=== PATIENT | female | born 1955 | race American Indian/Alaskan Native ===

== ENCOUNTER 2016-12-08 17:00 | Emergency (ER) | payer MEDICAID ==
[2016-12-08] MEDS ORDERED: Sodium Chloride 0.9% 10 ML Syringe FLUSH PRN ×2 (17:01→17:19)
[2016-12-08] MEDS ORDERED: 50% Dextrose in Water 50 ML Syringe IVPUSH ONE (17:16)
[2016-12-08 17:20] VITALS: BP 82/61
[2016-12-08] MEDS ORDERED: Dextrose 5%-0.45% NaCl 1,000 ML IV SCH (17:30)
[2016-12-08] MEDS ORDERED: Sodium Chloride 0.9% 1,000 ML IV ONE (17:39)
[2016-12-08 18:09] LABS: CHLORIDE,CL 94 mmol/L (101-111); SODIUM,NA 138 mmol/L (135-145)
[2016-12-08] MEDS ORDERED: Piperacillin/Tazobactam 3.375 GM in Sodium Chloride 0.9% 100 ML IV ONE (18:13)
[2016-12-08 19:07] LABS: BASE EXCESS ARTERIAL -16 mmol/L ((-2)-(+3)); O2 DELIVERY DEVICE ROOM AIR; O2 SATURATION ARTERIAL 60 % (95-100); PCO2 ARTERIAL 26 mmHg (35-45)
[2016-12-08 19:09] LABS: PO2 ARTERIAL 44 mmHg (70-100)
--- NOTE | 2016-12-08 19:18 | EDM.PDOC ---
Scribed by Yuli Trivedi 12/08/16 0340 for Sanjeev Cooper MD ED HPI GENERAL MEDICAL PROBLEM - General Chief Complaint: Diabetic Complaint Stated Complaint: AMBULANCE Time Seen by Provider: 12/08/16 17:00 Source of Information: Reports: Patient, EMS, RN, RN Notes Reviewed History Limitations: Reports: Other (confusion) - History of Present Illness INITIAL COMMENTS - FREE TEXT/NARRATIVE: Arrives from home by ambulance with report that a family member called 911 stating patient was unresponsive but breathing. EMS found patient to have a blood sugar of 22 and gave oral glucose. Patient reports feeling weak x1 or 2 days but denies any other complaints and can give no further history. Severity: Severe Improves with: Reports: None Worsens with: Reports: None Associated Symptoms: Reports: No Other Symptoms - Related Data Allergies Allergy/AdvReac Type Severity Reaction Status Date / Time No Known Allergies Allergy Verified 12/08/16 17:13 Home Meds: Home Meds Lisinopril 10 mg PO DAILY 08/05/13 [History] metFORMIN [metFORMIN XR] 250 mg PO BID 08/05/13 [History] Multivitamin [Daily Multiple Vitamin] 1 tab PO DAILY 12/08/16 [History] Naproxen 250 mg PO BID 12/08/16 [History] Past Medical History HEENT History: Reports: Impaired Vision Cardiovascular History: Reports: Hypertension Respiratory History: Reports: COPD Psychiatric History: Reports: Addiction (alcohol) Endocrine/Metabolic History: Reports: Diabetes, Type II - History Comment History Comment: alcohol abuse Social & Family History - Family History Family Medical History: Noncontributory - Tobacco Use Smoking Status *Q: Current Every Day Smoker Years of Tobacco use: 20 Packs/Tins Daily: 1 Used Tobacco, but Quit: No Second Hand Smoke Exposure: Yes - Alcohol Use Days Per Week of Alcohol Use: 2 Number of Drinks Per Day: 5 Total Drinks Per Week: 10 - Recreational Drug Use Recreational Drug Use: No - Living Situation & Occupation Living situation: Reports: with Family Occupation: Unemployed ED ROS GENERAL - Review of Systems Review Of Systems: Unable To Obtain (patient confused) ED EXAM GENERAL NO PERIP PULSE - Physical Exam Exam: See Below Exam Limited By: No Limitations General Appearance: Lethargic, Other (frail, thin, chronically ill appearing.) Eye Exam: Bilateral Eye: Normal Inspection Ears: Normal External Exam, Normal Canal, Hearing Grossly Normal, Normal TMs Nose: Normal Inspection, Normal Mucosa, No Blood Throat/Mouth: Other (missing teeth. Dry oral membranes.) Head: Atraumatic, Normocephalic Neck: Normal Inspection, Supple, Non-Tender, Full Range of Motion Respiratory/Chest: Decreased Breath Sounds (in bilateral lower lung [place]. ) Cardiovascular: Normal Peripheral Pulses, Regular Rate, Rhythm, No Edema, No Gallop, No JVD, No Murmur, No Rub GI/Abdominal: Normal Bowel Sounds, Soft, Non-Tender, No Organomegaly, No Distention, No Abnormal Bruit, No Mass (Female) Exam: Deferred Rectal (Female) Exam: Deferred Back Exam: Normal Inspection, Full Range of Motion, NT Extremities: Normal Inspection, Normal Range of Motion, Non-Tender, Normal Capillary Refill, No Pedal Edema Neurological: Alert, Oriented (to person and place. Generalized weakness.), No Motor/Sensory Deficits Psychiatric: Flat Affect Skin Exam: Other (cool to touch, otherwise normal. ) EKG INTERPRETATION EKG Date: 12/08/16 Time: 17:28 Rhythm: Other (sinus rhythm) Rate (Beats/Min): 88 [place]: Normal P-Wave: Present QRS: Normal ST-T: Normal QT: Prolonged Comparison: NA - No Prior EKG Course - Vital Signs Last Recorded V/S: Last Vital Signs Temp 29.8 C L 12/08/16 17:19 Pulse 90 12/08/16 17:19 Resp 14 12/08/16 17:19 BP 82/61 L 12/08/16 17:19 Pulse Ox 100 12/08/16 17:19 - Orders/Labs/Meds Orders: Active Orders 24 hr Category Date Time Status Blood Glucose Check, Bedside [RC] ONETIME Care 12/08/16 17:00 Active Blood Glucose Check, Bedside [RC] ONETIME Care 12/08/16 17:56 Active Blood Glucose Check, Bedside [RC] ONETIME Care 12/08/16 18:42 Active Cardiac Monitoring [RC] . DIRECTED Care 12/08/16 17:01 Active EKG 12 Lead [EKG Documentation Completion] [RC] STAT Care 12/08/16 17:19 Active Peripheral IV Care [RC] . DIRECTED Care 12/08/16 17:01 Active Peripheral IV Care [RC] . DIRECTED Care 12/08/16 17:19 Active Chest 1V Frontal [CR] Stat Exams 12/08/16 18:46 Ordered AMMONIA VENOUS [CHEM] Stat Lab 12/08/16 18:55 Received AMYLASE [CHEM] Stat Lab 12/08/16 17:10 Results COMPREHENSIVE METABOLIC PN,CMP [CHEM] Stat Lab 12/08/16 17:10 Results CREATINE KINASE,CK [CHEM] Stat Lab 12/08/16 17:10 Results CULTURE BLOOD [BC] Stat Lab 12/08/16 17:57 Results CULTURE BLOOD [BC] Stat Lab 12/08/16 18:10 Results DRUG SCREEN URINE BIORAD [URCHEM] Stat Lab 12/08/16 17:01 Uncollected ETHANOL BLOOD MEDICAL [CHEM] Stat Lab 12/08/16 17:10 Results LIPASE [CHEM] Stat Lab 12/08/16 17:10 Results UA W/MICROSCOPIC [URIN] Stat Lab 12/08/16 17:00 Uncollected Dextrose 5%-0.45% NaCl [Dextrose 5%-1/2 NS] 1,000 ml Med 12/08/16 17:30 Active IV ASDIRECTED Sodium Chloride 0.9% [Saline Flush] Med 12/08/16 17:01 Active 10 ml FLUSH ASDIRECTED PRN Sodium Chloride 0.9% [Saline Flush] Med 12/08/16 17:19 Active 10 ml FLUSH ASDIRECTED PRN Blood Culture x2 Reflex Set [OM.PC] Stat Oth 12/08/16 17:20 Ordered Peripheral IV Insertion Adult [OM.PC] Stat Oth 12/08/16 17:00 Ordered Peripheral IV Insertion Adult [OM.PC] Stat Oth 12/08/16 17:19 Ordered Medication Orders Dextrose/Sodium Chloride (Dextrose 5%-1/2 Ns) 1,000 mls @ 150 mls/hr IV ASDIRECTED RAVIN Last Admin: 12/08/16 17:29 Dose: 150 mls/hr Sodium Chloride (Saline Flush) 10 ml FLUSH ASDIRECTED PRN PRN Reason: Keep Vein Open Last Admin: 12/08/16 17:17 Dose: 10 ml Sodium Chloride (Saline Flush) 10 ml FLUSH ASDIRECTED PRN PRN Reason: Keep Vein Open Last Admin: 12/08/16 17:55 Dose: 10 ml Labs: Laboratory Tests 12/08/16 12/08/16 12/08/16 Range/Units 17:07 17:10 17:10 WBC 40.0 H* (5.0-10.0) 10^3/uL RBC 3.64 L (4.2-5.4) 10^6/uL Hgb 9.9 L (12.0-16.0) g/dL Hct 31.9 L (37.0-47.0) % MCV 87.6 (80-100) fL MCH 27.2 (27.0-34.0) pg MCHC 31.0 L (33.0-35.0) g/dL Plt Count 281 (150-450) 10^3/uL Neut % (Auto) 95.5 H (42.2-75.2) % Lymph % (Auto) 1.6 L (20.5-50.1) % [place] % (Auto) 2.8 (2-8) % Eos % (Auto) 0.0 L (1.0-3.0) % Baso % (Auto) 0.1 (0.0-1.0) % Add Manual Diff Yes Neutrophils % (Manual) 89 % Band Neutrophils % 6 % Lymphocytes % (Manual) 4 % Monocytes % (Manual) 1 % Teagan Cells 2+ moderate ABG pH (7.35-7.45) ABG pCO2 (35-45) mmHg ABG pO2 (70-100) mmHg ABG HCO3 (22-26) mmol/L ABG O2 Saturation (95-100) % ABG Base Excess ((-2)-(+3)) mmol/L O2 Delivery Device Sodium 138 (135-145) mmol/L Potassium 4.4 (3.6-5.0) mmol/L Chloride 94 L (101-111) mmol/L Carbon Dioxide 9.0 L (21.0-31.0) mmol/L Anion Gap 39.4 BUN 28 H (7-18) mg/dL Creatinine 2.4 H (0.6-1.3) mg/dL Est Cr Clr Drug Dosing TNP Estimated GFR (MDRD) 21 BUN/Creatinine Ratio 11.66 Glucose 48 L* (74-105) mg/dL POC Glucose 58 L (70-105) mg/dl Lactic Acid (0.5-2.2) mmol/L Calcium 8.2 L (8.4-10.2) mg/dl Phosphorus (2.5-4.6) mg/dL Magnesium (1.8-2.5) mg/dL Total Bilirubin 4.4 H (0.2-1.0) mg/dL Alkaline Phosphatase 251 H (42-121) IU/L Creatine Kinase 348 H (26-174) IU/L Troponin I (0.00-0.02) ng/ml B-Natriuretic Peptide (0-100) pg/ml Total Protein 6.9 (6.7-8.2) g/dl Albumin 2.1 L (3.2-5.5) g/dl Globulin 4.8 Albumin/Globulin Ratio 0.44 Amylase 48 (28-100) U/L Lipase 26 (22-51) U/L Ethyl Alcohol 62 mg/dL 12/08/16 12/08/16 12/08/16 Range/Units 17:10 17:10 17:10 WBC (5.0-10.0) 10^3/uL RBC (4.2-5.4) 10^6/uL Hgb (12.0-16.0) g/dL Hct (37.0-47.0) % MCV (80-100) fL MCH (27.0-34.0) pg MCHC (33.0-35.0) g/dL Plt Count (150-450) 10^3/uL Neut % (Auto) (42.2-75.2) % Lymph % (Auto) (20.5-50.1) % [place] % (Auto) (2-8) % Eos % (Auto) (1.0-3.0) % Baso % (Auto) (0.0-1.0) % Add Manual Diff Neutrophils % (Manual) % Band Neutrophils % % Lymphocytes % (Manual) % Monocytes % (Manual) % [place] Cells ABG pH (7.35-7.45) ABG pCO2 (35-45) mmHg ABG pO2 (70-100) mmHg ABG HCO3 (22-26) mmol/L ABG O2 Saturation (95-100) % ABG Base Excess ((-2)-(+3)) mmol/L O2 Delivery Device Sodium (135-145) mmol/L Potassium (3.6-5.0) mmol/L Chloride (101-111) mmol/L Carbon Dioxide (21.0-31.0) mmol/L Anion Gap BUN (7-18) mg/dL Creatinine (0.6-1.3) mg/dL Est Cr Clr Drug Dosing Estimated GFR (MDRD) BUN/Creatinine Ratio Glucose (74-105) mg/dL POC Glucose (70-105) mg/dl Lactic Acid 16.9 H (0.5-2.2) mmol/L Calcium (8.4-10.2) mg/dl Phosphorus 10.7 H* (2.5-4.6) mg/dL Magnesium 1.7 L (1.8-2.5) mg/dL Total Bilirubin (0.2-1.0) mg/dL Alkaline Phosphatase (42-121) IU/L Creatine Kinase (26-174) IU/L Troponin I < 0.02 (0.00-0.02) ng/ml B-Natriuretic Peptide 448 H (0-100) pg/ml Total Protein (6.7-8.2) g/dl Albumin (3.2-5.5) g/dl Globulin Albumin/Globulin Ratio Amylase (28-100) U/L Lipase (22-51) U/L Ethyl Alcohol mg/dL 12/08/16 12/08/16 12/08/16 Range/Units 17:59 18:30 18:34 WBC (5.0-10.0) 10^3/uL RBC (4.2-5.4) 10^6/uL Hgb (12.0-16.0) g/dL Hct (37.0-47.0) % MCV (80-100) fL MCH (27.0-34.0) pg MCHC (33.0-35.0) g/dL Plt Count (150-450) 10^3/uL Neut % (Auto) (42.2-75.2) % Lymph % (Auto) (20.5-50.1) % [place] % (Auto) (2-8) % Eos % (Auto) (1.0-3.0) % Baso % (Auto) (0.0-1.0) % Add Manual Diff Neutrophils % (Manual) % Band Neutrophils % % Lymphocytes % (Manual) % Monocytes % (Manual) % Teagan Cells ABG pH 7.22 L (7.35-7.45) ABG pCO2 26 L (35-45) mmHg ABG pO2 44 L* (70-100) mmHg ABG HCO3 10.0 L (22-26) mmol/L ABG O2 Saturation 60 L (95-100) % ABG Base Excess -16 L ((-2)-(+3)) mmol/L O2 Delivery Device Room air Sodium (135-145) mmol/L Potassium (3.6-5.0) mmol/L Chloride (101-111) mmol/L Carbon Dioxide (21.0-31.0) mmol/L Anion Gap BUN (7-18) mg/dL Creatinine (0.6-1.3) mg/dL Est Cr Clr Drug Dosing Estimated GFR (MDRD) BUN/Creatinine Ratio Glucose (74-105) mg/dL POC Glucose 230 H 235 H (70-105) mg/dl Lactic Acid (0.5-2.2) mmol/L Calcium (8.4-10.2) mg/dl Phosphorus (2.5-4.6) mg/dL Magnesium (1.8-2.5) mg/dL Total Bilirubin (0.2-1.0) mg/dL Alkaline Phosphatase (42-121) IU/L Creatine Kinase (26-174) IU/L Troponin I (0.00-0.02) ng/ml B-Natriuretic Peptide (0-100) pg/ml Total Protein (6.7-8.2) g/dl Albumin (3.2-5.5) g/dl Globulin Albumin/Globulin Ratio Amylase (28-100) U/L Lipase (22-51) U/L Ethyl Alcohol mg/dL 12/08/16 Range/Units 18:48 WBC (5.0-10.0) 10^3/uL RBC (4.2-5.4) 10^6/uL Hgb (12.0-16.0) g/dL Hct (37.0-47.0) % MCV (80-100) fL MCH (27.0-34.0) pg MCHC (33.0-35.0) g/dL Plt Count (150-450) 10^3/uL Neut % (Auto) (42.2-75.2) % Lymph % (Auto) (20.5-50.1) % [place] % (Auto) (2-8) % Eos % (Auto) (1.0-3.0) % Baso % (Auto) (0.0-1.0) % Add Manual Diff Neutrophils % (Manual) % Band Neutrophils % % Lymphocytes % (Manual) % Monocytes % (Manual) % [place] Cells ABG pH (7.35-7.45) ABG pCO2 (35-45) mmHg ABG pO2 (70-100) mmHg ABG HCO3 (22-26) mmol/L ABG O2 Saturation (95-100) % ABG Base Excess ((-2)-(+3)) mmol/L O2 Delivery Device Sodium (135-145) mmol/L Potassium (3.6-5.0) mmol/L Chloride (101-111) mmol/L Carbon Dioxide (21.0-31.0) mmol/L Anion Gap BUN (7-18) mg/dL Creatinine (0.6-1.3) mg/dL Est Cr Clr Drug Dosing Estimated GFR (MDRD) BUN/Creatinine Ratio Glucose (74-105) mg/dL POC Glucose 265 H (70-105) mg/dl Lactic Acid (0.5-2.2) mmol/L Calcium (8.4-10.2) mg/dl Phosphorus (2.5-4.6) mg/dL Magnesium (1.8-2.5) mg/dL Total Bilirubin (0.2-1.0) mg/dL Alkaline Phosphatase (42-121) IU/L Creatine Kinase (26-174) IU/L Troponin I (0.00-0.02) ng/ml B-Natriuretic Peptide (0-100) pg/ml Total Protein (6.7-8.2) g/dl Albumin (3.2-5.5) g/dl Globulin Albumin/Globulin Ratio Amylase (28-100) U/L Lipase (22-51) U/L Ethyl Alcohol mg/dL Meds: Medications Generic Name Dose Route Start Last Admin Trade Name Freq PRN Reason Stop Dose Admin Dextrose/Sodium Chloride 1,000 mls @ 150 mls/hr 12/08/16 17:30 12/08/16 17:29 Dextrose 5%-1/2 Ns IV 150 mls/hr ASDIRECTED RAVIN Administration Sodium Chloride 10 ml 12/08/16 17:01 12/08/16 17:17 Saline Flush FLUSH 10 ml ASDIRECTED PRN Administration Keep Vein Open Sodium Chloride 10 ml 12/08/16 17:19 12/08/16 17:55 Saline Flush FLUSH 10 ml ASDIRECTED PRN Administration Keep Vein Open Discontinued Medications Generic Name Dose Route Start Last Admin Trade Name Freq PRN Reason Stop Dose Admin Dextrose/Water 50 ml 12/08/16 17:16 12/08/16 17:19 Dextrose 50% In Water IVPUSH 12/08/16 17:17 50 ml ONETIME ONE Administration Sodium Chloride 1,000 mls @ 999 mls/hr 12/08/16 17:39 12/08/16 17:49 Normal Saline IV 12/08/16 18:39 999 mls/hr .BOLUS ONE Administration Piperacillin Sod/Tazobactam 100 mls @ 200 mls/hr 12/08/16 18:13 12/08/16 18: 22 Sod 3.375 gm/ Sodium Chloride IV 12/08/16 18:42 200 mls/hr ONETIME ONE Administration - Radiology Interpretation Free Text/Narrative:: CXR: see Rad. report. Departure - Departure Time of Disposition: 19:01 Disposition: DC/Tfer to Acute Hospital 02 Condition: Critical Clinical Impression: Hypoglycemia, Septic shock, Chronic alcohol abuse Hypothermia Qualifiers: Encounter type: initial encounter Qualified Code(s): T68.XXXA - Hypothermia, initial encounter Sepsis Qualifiers: Sepsis type: sepsis due to unspecified organism Qualified Code(s): A41.9 - Sepsis, unspecified organism - Discharge Information Forms: ED Department Discharge, Interfacility Transfer EMTALA - My Orders Last 24 Hours: My Active Orders 12/08/16 17:00 Blood Glucose Check, Bedside [RC] ONETIME UA W/MICROSCOPIC [URIN] Stat Peripheral IV Insertion Adult [OM.PC] Stat 12/08/16 17:01 Cardiac Monitoring [RC] . DIRECTED Peripheral IV Care [RC] . DIRECTED DRUG SCREEN URINE BIORAD [URCHEM] Stat Sodium Chloride 0.9% [Saline Flush] 10 ml FLUSH ASDIRECTED PRN 12/08/16 17:10 AMYLASE [CHEM] Stat COMPREHENSIVE METABOLIC PN,CMP [CHEM] Stat CREATINE KINASE,CK [CHEM] Stat ETHANOL BLOOD MEDICAL [CHEM] Stat LIPASE [CHEM] Stat 12/08/16 17:19 EKG 12 Lead [EKG Documentation Completion] [RC] STAT Peripheral IV Care [RC] . DIRECTED Sodium Chloride 0.9% [Saline Flush] 10 ml FLUSH ASDIRECTED PRN Peripheral IV Insertion Adult [OM.PC] Stat 12/08/16 17:20 Blood Culture x2 Reflex Set [OM.PC] Stat 12/08/16 17:30 Dextrose 5%-0.45% NaCl [Dextrose 5%-1/2 NS] 1,000 ml IV ASDIRECTED 12/08/16 17:56 Blood Glucose Check, Bedside [RC] ONETIME 12/08/16 17:57 CULTURE BLOOD [BC] Stat 12/08/16 18:10 CULTURE BLOOD [BC] Stat 12/08/16 18:42 Blood Glucose Check, Bedside [RC] ONETIME 12/08/16 18:46 Chest 1V Frontal [CR] Stat 12/08/16 18:55 AMMONIA VENOUS [CHEM] Stat - Assessment/Plan Last 24 Hours: My Active Orders 12/08/16 17:00 Blood Glucose Check, Bedside [RC] ONETIME UA W/MICROSCOPIC [URIN] Stat Peripheral IV Insertion Adult [OM.PC] Stat 12/08/16 17:01 Cardiac Monitoring [RC] . DIRECTED Peripheral IV Care [RC] . DIRECTED DRUG SCREEN URINE BIORAD [URCHEM] Stat Sodium Chloride 0.9% [Saline Flush] 10 ml FLUSH ASDIRECTED PRN 12/08/16 17:10 AMYLASE [CHEM] Stat COMPREHENSIVE METABOLIC PN,CMP [CHEM] Stat CREATINE KINASE,CK [CHEM] Stat ETHANOL BLOOD MEDICAL [CHEM] Stat LIPASE [CHEM] Stat 12/08/16 17:19 EKG 12 Lead [EKG Documentation Completion] [RC] STAT Peripheral IV Care [RC] . DIRECTED Sodium Chloride 0.9% [Saline Flush] 10 ml FLUSH ASDIRECTED PRN Peripheral IV Insertion Adult [OM.PC] Stat 12/08/16 17:20 Blood Culture x2 Reflex Set [OM.PC] Stat 12/08/16 17:30 Dextrose 5%-0.45% NaCl [Dextrose 5%-1/2 NS] 1,000 ml IV ASDIRECTED 12/08/16 17:56 Blood Glucose Check, Bedside [RC] ONETIME 12/08/16 17:57 CULTURE BLOOD [BC] Stat 12/08/16 18:10 CULTURE BLOOD [BC] Stat 12/08/16 18:42 Blood Glucose Check, Bedside [RC] ONETIME 12/08/16 18:46 Chest 1V Frontal [CR] Stat 12/08/16 18:55 AMMONIA VENOUS [CHEM] Stat I have read and agree with the documentation that has been completed regarding this visit. By signing this record, I attest that the documentation was completed in my physical presence and is an accurate record of the encounter.
--- NOTE | 2016-12-09 20:26 | EKG ---
12/08/2016 - VIJAY JOY - This 12-lead EKG shows a normal sinus rhythm with a ventricular rate of 88. Normal axis. Prolonged QT interval. No acute ST-segment or T-wave changes. [facility] /[id number]
[2017-01-06 11:24] LABS: ALLEN TEST POSITIVE
== END 2016-12-08 19:31 ==
LOC: DL.ED 17:00
DX: A41.9 Sepsis, unspecified organism (principal); R65.21 Severe sepsis with septic shock; T68.XXXA Hypothermia, initial encounter; E11.649 Type 2 diabetes mellitus with hypoglycemia without coma; F10.10 Alcohol abuse, uncomplicated; I10 Essential (primary) hypertension; J44.9 Chronic obstructive pulmonary disease, unspecified; F17.210 Nicotine dependence, cigarettes, uncomplicated; Z79.84 Long term (current) use of oral hypoglycemic drugs; Z79.899 Other long term (current) drug therapy; Y90.3 Blood alcohol level of 60-79 mg/100 ml
CPT/HCPCS: 36415; 36600; 51702; 71010; 80053; 82140; 82150; 82550; 82803; 82962; 83605; 83690; 83735; 83880; 84100; 84484; 85025; 87040; 93005; 96365; 96366; 96368; 96375; 99285; G0480; J2543; J7030; J7042; J7050; J7060